=== PATIENT | male | born 1985 | race African-American/Black ===

== ENCOUNTER 2018-05-10 00:36 | Emergency (ER) | payer SELFPAY, OTHER ==
[2018-05-10] MEDS: FAMOTIDINE 20 MG TAB PO (01:42)
[2018-05-10] MEDS: METHYLPREDNISOLONE 125 MG INJ IM (01:43)
[2018-05-10] MEDS: DIPHENHYDRAMINE 50 MG INJ IM (01:45)
== END 2018-05-10 02:05 | disposition home or self-care (01) ==
LOC: FTE 00:36
DX: L30.9 Dermatitis, unspecified (principal); J45.909 Unspecified asthma, uncomplicated; F17.210 Nicotine dependence, cigarettes, uncomplicated
CPT/HCPCS: 96372; 99284-25

== ENCOUNTER 2018-06-26 23:39 | Emergency (ER) | payer SELFPAY ==
[2018-06-27] MEDS: ONDANSETRON (ODT) 4 MG TAB ODT (02:07)
[2018-06-27] MEDS: HYDROCODONE/APAP (10/325) TAB PO (02:07)
[2018-06-27] MEDS: DEXAMETHASONE 10 MG/ML 1 ML INJ IM (02:19)
== END 2018-06-27 02:45 | disposition home or self-care (01) ==
LOC: FTE 23:39
DX: J06.9 Acute upper respiratory infection, unspecified (principal); L30.9 Dermatitis, unspecified; J45.909 Unspecified asthma, uncomplicated; Z87.891 Personal history of nicotine dependence
CPT/HCPCS: 96372; 99284-25